=== PATIENT | male | born 1945 | race Caucasian/White ===

== ENCOUNTER 2019-02-02 16:14 | Emergency (ER) | payer MEDICARE, BC ==
[2019-02-02] MEDS ORDERED: Enoxaparin 80 MG/0.8 ML Syringe ONE (16:30)
--- NOTE | 2019-02-02 16:52 | EDM.PDOC ---
ED HPI GENERAL MEDICAL PROBLEM - General Chief Complaint: Lower Extremity Injury/Pain Stated Complaint: POSSIBLE BLOOD CLOT Time Seen by Provider: 02/02/19 16:25 Source of Information: Reports: Patient History Limitations: Reports: No Limitations - History of Present Illness INITIAL COMMENTS - FREE TEXT/NARRATIVE: This patient presents to the ED for evaluation of right lower leg pain. He developed pain a couple of days ago and reports that it is getting worse. He has a history of venous insufficiency and does have a stint in the leg. He localizes the pain to the middle of his anterior lower leg just lateral to the tibia. He denies other symptoms or concerns including chest pain, difficulty breathing, fever, recent illnesses. Onset: Gradual Onset Date: 01/31/19 Duration: Getting Worse Location: Reports: Lower Extremity, Right Quality: Reports: Ache Improves with: Reports: None Worsens with: Reports: None Associated Symptoms: Reports: No Other Symptoms - Related Data Allergies Allergy/AdvReac Type Severity Reaction Status Date / Time CONTRAST Allergy Itching Uncoded 02/02/19 16:22 Review of Systems - Review of Systems Review Of Systems: See Below Constitutional: Reports: No Symptoms Eyes: Reports: No Symptoms Ears: Reports: No Symptoms Nose: Reports: No Symptoms Mouth/Throat: Reports: No Symptoms Respiratory: Reports: No Symptoms Cardiovascular: Reports: Lightheadedness GI/Abdominal: Reports: No Symptoms Skin: Reports: Other (leg pain) Neurological: Reports: No Symptoms ED EXAM, GENERAL - Physical Exam Exam: See Below Exam Limited By: No Limitations General Appearance: Alert, No Apparent Distress Eye Exam: Bilateral Eye: PERRL Ears: Normal External Exam Nose: Normal Inspection Head: Atraumatic, Normocephalic Neck: Normal Inspection Respiratory/Chest: No Respiratory Distress, Lungs Clear, Normal Breath Sounds, No Accessory Muscle Use, Chest Non-Tender Cardiovascular: Regular Rate, Rhythm Extremities: John's Sign (some pain with flexion of right ankle), Leg Pain ( Area of tenderness middle anterior lower leg just lateral to tibia. Area erythematous and slightly warmer than surrounding area.), Increased Warmth, Redness Neurological: Alert, Oriented Skin Exam: Warm, Dry Front/Back Body Diagram: 1 - area of tenderness with palpation, erythema, and warmth. Distal CMS intact. Course - Re-Assessments/Exams Free Text/Narrative Re-Assessment/Exam: 02/02/19 16:59 This patient presents for evaluation of leg symptoms. The workup in the ED is incomplete because ultrasound is not available. Given the focal findings on exam and his history of a stent, he was started on Lovenox, 70 mg. He was given the first dose in the ED prior to discharge and will administer his dose tomorrow at home. He will be scheduled for an ultrasound on February 04. This was discussed with the patient. There are no symptoms to suggest this has progressed to pulmonary embolism or other more serious etiologies. Clarification of any risks involved with Lovenox therapy were discussed, and the patient understands the risk/benefit ratio to this therapy and the possibility of serious and/or life-threatening hemorrhage. I do not feel the patient requires admission at this point, and they were advised to follow up closely with primary care provider for continued management of this. The patient left with complete understanding and agreement with this plan and no other complaints. Departure - Departure Time of Disposition: 16:50 Disposition: Home, Self-Care 01 Condition: Fair Clinical Impression: Leg pain - Discharge Information *PRESCRIPTION DRUG MONITORING PROGRAM REVIEWED*: Not Applicable Instructions: Pain Without a Known Cause Forms: ED Department Discharge
== END 2019-02-02 16:40 | disposition home or self-care (01) ==
LOC: LB.ED 16:14
DX: M79.661 Pain in right lower leg (principal); Z91.041 Radiographic dye allergy status
CPT/HCPCS: 99282; 99283; J1650

== ENCOUNTER 2025-02-26 08:33 | Day surgery (SDC) | payer MEDICARE, BC ==
[2025-02-26] MEDS ORDERED: Propofol 500 MG/50 ML SDV ONE (11:30)
== END 2025-02-26 12:25 | disposition home or self-care (01) ==
LOC: LB.SDS 08:33
PROVIDERS: ATTEND Surgery
DX: Z12.11 Encounter for screening for malignant neoplasm of colon (principal); D12.5 Benign neoplasm of sigmoid colon; K57.30 Diverticulosis of large intestine without perforation or abscess without bleeding; I12.9 Hypertensive chronic kidney disease with stage 1 through stage 4 chronic kidney disease, or unspecified chronic kidney disease; N18.30 Chronic kidney disease, stage 3 unspecified; Z88.8 Allergy status to other drugs, medicaments and biological substances; Z79.82 Long term (current) use of aspirin; Z87.891 Personal history of nicotine dependence; Z91.041 Radiographic dye allergy status; Z79.899 Other long term (current) drug therapy
CPT/HCPCS: 45385; 88305; J2003; J2704; J7030